=== PATIENT | female | born 1955 | race Caucasian/White ===

== ENCOUNTER → 2016-12-23 | Outpatient (CLI) | payer BC ==
--- NOTE | 2016-12-23 20:04 | XCELERA REPORT ---
[address] [address] Transthoracic Echocardiogram Report Name: UMER ALVAREZ Age: 61 yrs Gender: Female : 1955 Patient Status: Outpatient Patient Location: [facility] Study Date: 12/23/2016 01:08 PM Height: 60 in Weight: 353 lb BSA: 2.4 m2 Reason For Study: CHF I50.9 Ordering Physician: KIERRA KENNY Performed By: Elen Arrington Interpretation Summary Difficult study due to morbid obesity 353# 5' tall. Mild post pericardial effusion. Ao root not dialted. AV sclerosis involving all 3 cusps, no by peak courtney 1.3 m/s, no AR. severe MAC with no MS and no MR, mild LA enlargement. No LV enlargement, no LVH, IVS hypokinetic, No apical view to assess apex, Lat wall, Inferior wall and Anterior wall, and LVEF not assessed due to no endocardial definition on apical view. There is LV diastolic dysfunction by TDI. RH poorly seen, no RVSP 16 mm, no pulm hypertension. VT trace. MMode/2D Measurements & Calculations RVDd: 3.6 cm LVIDd: 4.8 cm FS: 27.5 % Ao root diam: 2.6 cm IVSd: 0.71 cm LVIDs: 3.5 cm EDV(Teich): 107.4 ml LVPWd: 0.67 cm ESV(Teich): 50.1 ml Ao root area: 5.5 cm2 EF(Teich): 53.4 % LA dimension: 4.4 cm Doppler Measurements & Calculations MV E max courtney: MV P1/2t max courtney: Ao V2 max: LV V1 max P.0 cm/sec 152.5 cm/sec 135.7 cm/sec 3.7 mmHg MV A max courtney: MV P1/2t: 66.4 msec Ao max PG: LV V1 max: 83.4 cm/sec 7.4 mmHg 96.3 cm/sec MV E/A: 1.8 MVA(P1/2t): 3.3 cm2 MV dec slope: 672.4 cm/sec2 PA V2 max: TR max courtney: 85.9 cm/sec 199.5 cm/sec PA max P.0 mmHgTR max P.9 mmHg I WMSI = 1.50 % Normal = 50 Segments Size X - Cannot 2 - 4 - 1-2 small Interpret 1 - Normal Hypokinetic 3 - AkineticDyskinetic 3-5 moderate 5 - 6-14 large Aneurysmal 15-16 diffuse : KIERRA KENNY > Samir Bobo
== END ==
LOC: SP 12:54
PROVIDERS: ATTEND Physician Assistant
DX: I50.9 Heart failure, unspecified (principal)
CPT/HCPCS: 93306

== ENCOUNTER 2017-01-17 09:23 | Emergency (ER) | payer BC ==
[2017-01-17 09:53] VITALS: BP 158/72
--- NOTE | 2017-01-17 09:56 | ER Document Report ---
ED General - General Stated Complaint: FALL/WEAKNESS Time Seen by Provider: 01/17/17 09:33 TRAVEL OUTSIDE OF THE [place] IN LAST 30 DAYS: No - HPI Notes: This is a 62-year-old female who this morning developed a lightheaded sensation and weakness and numbness in her left upper and lower extremity. She is unsure exactly what time this happened but it was fairly early and symptoms resolved. It made it difficult to walk but she was able to get back to her bed. She went to see her primary care physician today for other reasons and ended up having a fall. She states she basically slid to the ground and there was no injury. Denies any speech or swallowing difficulty. No chest pain or discomfort. No headache. She has had similar she states she had a workup at [facility] recently regarding this. She states she is completely back to baseline and has no injury complaints. Past Medical History - Social History Smoking Status: Never Smoker Family History: Reviewed & Not Pertinent Review of Systems - Review of Systems -: Yes All other systems reviewed and negative Physical Exam - Vital signs Vitals: Temp Resp BP Pulse Ox 98.0 F 17 158/72 H 96 01/17/17 09:44 01/17/17 09:44 01/17/17 09:44 01/17/17 09:44 Notes: See nurse's notes - Notes Notes: GENERAL: VS as per nursing doc. pleasant, well-nourished and in no acute distress. HEAD: Atraumatic, normocephalic. EYES: Extraocular movements intact, sclera anicteric, no conjunctival injection or discharge. ENT: Nares patent, oropharynx clear without exudates. Moist mucous membranes. NECK: Normal range of motion, supple, no carotid bruits. LUNGS: Breath sounds clear to auscultation bilaterally and equal. No wheezes rales or rhonchi. HEART: Normal S1S2. Regular rate and rhythm without murmurs. Equal peripheral pulses. ABDOMEN: Soft, non-tender EXTREMITIES: Normal range of motion without pain elicited NEUROLOGICAL: GCS 15, Normal speech without aphasia. No pronator drift. Grossly normal exam, symmetrical movement. No gross cerebellar abnormalities. Please note limited exam as patient refused further examination and leaving AMA. PSYCH: Normal mood, normal affect. SKIN: Warm, Dry, no cyanosis, Cap refill < 2 sec. Course - Re-evaluation Re-evalutation: 01/17/17 09:56 I went to complete my further evaluation as my initial exam was somewhat limited as the nurses were IV. After returning and discussing further, the patient had refused any further evaluation or treatment otherwise. She is capable of making her own decisions and is leaving A. Her reasoning she reports is that she has had a thorough workup recently in the hospital regarding the same thing. I discussed with her that this very well could be a TIA and she is at risk for further stroke or disabling neurologic problem. With risks understood, she still refuses further evaluation and treatment. - Vital Signs Vital signs: Temp Pulse Resp BP Pulse Ox 98.0 F 22 H 158/72 H 95 01/17/17 09:44 01/17/17 10:00 01/17/17 09:44 01/17/17 10:00 Discharge - Discharge Clinical Impression: Acute left-sided weakness Condition: Fair Disposition: AGAINST MEDICAL ADVICE Additional Instructions: Follow-up with your primary care physician. Please return if you change your mind about further evaluation and treatment.
== END 2017-01-17 10:16 | disposition left against medical advice (07) ==
LOC: ER 09:23
DX: R53.1 Weakness (principal); R42 Dizziness and giddiness; W19.XXXA Unspecified fall, initial encounter
CPT/HCPCS: 99285